=== PATIENT | male | born 1955 | race Caucasian/White ===

== ENCOUNTER 2022-11-13 09:44 | Outpatient (CLI) | payer BC, SELFPAY | END 2022-11-13 09:45 | disposition home or self-care (01) | PROVIDERS: PCP Family Medicine; Visit Provider Family Medicine | DX: Z00.00 Encounter for general adult medical examination without abnormal findings (principal); E03.0 Congenital hypothyroidism with diffuse goiter; R73.03 Prediabetes; E78.5 Hyperlipidemia, unspecified; E78.1 Pure hyperglyceridemia; E11.9 Type 2 diabetes mellitus without complications; Z11.59 Encounter for screening for other viral diseases | CPT/HCPCS: 80053; 80061; 82043; 82570; 82607; 84153; 84156; 86803 ==

== ENCOUNTER 2024-03-04 14:24 | Outpatient (CLI) | payer BC, SELFPAY | END 2024-03-04 14:25 | disposition home or self-care (01) | PROVIDERS: PCP Family Medicine; Visit Provider Family Medicine | DX: E78.5 Hyperlipidemia, unspecified (principal); I10 Essential (primary) hypertension; R73.03 Prediabetes | CPT/HCPCS: 80053; 80061; 82043; 82570 ==

== ENCOUNTER 2024-11-28 07:31 | Outpatient (CLI) | payer BC, SELFPAY | END 2024-11-28 07:32 | disposition home or self-care (01) | LOC: NFLDREF 11-30 05:33 | PROVIDERS: PCP Family Medicine; Referring Provider Family Medicine; Visit Provider Physician Assistant Medical | DX: M54.50 Low back pain, unspecified (principal); R82.90 Unspecified abnormal findings in urine | CPT/HCPCS: 87086 ==

== ENCOUNTER 2025-06-15 13:02 | Outpatient (CLI) | payer BC, SELFPAY | END 2025-06-15 13:03 | disposition home or self-care (01) | LOC: NFLDREF 06-16 14:10 | PROVIDERS: PCP Family Medicine; Referring Provider Family Medicine; Visit Provider Family Medicine | DX: R73.03 Prediabetes (principal); I10 Essential (primary) hypertension; E78.5 Hyperlipidemia, unspecified; Z00.00 Encounter for general adult medical examination without abnormal findings; E78.1 Pure hyperglyceridemia | CPT/HCPCS: 80053; 80061; 82043; 82570; G0103 ==